=== PATIENT | male | born 1990 | race Caucasian/White ===

== ENCOUNTER → 2017-12-10 17:16 | Outpatient (CLI) | payer BC, SELFPAY ==
--- NOTE | 2017-12-10 17:22 | RAD_ITS ---
STUDY: X-RAY - THORACIC SPINE REASON FOR EXAM: Male, 27 years old. Pain TECHNIQUE: 3 view(s) of the thoracic spine were obtained. COMPARISON: None. FINDINGS: Normal kyphosis of the thoracic spine. There is no substantial scoliosis. Normal thoracic vertebrae and endplates. Normal disc space heights. The soft tissue structures are unremarkable. RAD/Thoracic Spine 3 Views IMPRESSION: Normal x-ray examination of the thoracic spine. Electronically Signed: Rich Shaikh MD at 4:27 EDT , Service support ,
== END ==
PROVIDERS: Family Provider Family Medicine; PCP Family Medicine; Referring Provider Family Medicine; Visit Provider Family Medicine
DX: S39.012D Strain of muscle, fascia and tendon of lower back, subsequent encounter (principal); X58.XXXD Exposure to other specified factors, subsequent encounter
CPT/HCPCS: 72072

== ENCOUNTER → 2020-05-17 16:18 | Outpatient (CLI) | payer BC, SELFPAY ==
--- NOTE | 2020-05-17 16:23 | RAD_ITS ---
STUDY: X-RAY - CERVICAL SPINE REASON FOR EXAM: Male, 30 years old. Back pain that goes up into sides of the neck TECHNIQUE: 6 view(s) of the cervical spine were obtained. COMPARISON: None FINDINGS: Normal anterior atlantoaxial articulation. Normal odontoid process. Normal cervical lordosis. Normal vertebral bodies and endplates. Normal disc space heights. Normal visualized intervertebral neuroforamina. The soft tissue structures are unremarkable. RAD/Cerv Spine 4 or 5 Views IMPRESSION: Normal x-ray examination of the visualized cervical spine. Electronically Signed: Eddy Duggan DO at 16:52 EST Tel [phone], Service support ,
--- NOTE | 2020-05-17 16:23 | RAD_ITS ---
STUDY: X-RAY - THORACIC SPINE REASON FOR EXAM: Male, 30 years old. Back pain that goes up into sides of the neck TECHNIQUE: 3 view(s) of the thoracic spine were obtained. COMPARISON: None. FINDINGS: Normal kyphosis of the thoracic spine. There is no substantial scoliosis. Normal thoracic vertebrae and endplates. Normal disc space heights. The soft tissue structures are unremarkable. RAD/Thoracic Spine 3 Views IMPRESSION: Normal x-ray examination of the thoracic spine. Electronically Signed: Eddy Duggan DO at 18:07 EST Tel [phone], Service support ,
== END ==
PROVIDERS: PCP Family Medicine; Referring Provider Family Medicine; Visit Provider Family Medicine
DX: S39.012D Strain of muscle, fascia and tendon of lower back, subsequent encounter (principal); X58.XXXD Exposure to other specified factors, subsequent encounter
CPT/HCPCS: 72050; 72072

== ENCOUNTER → 2020-05-29 06:30 | Outpatient (CLI) | payer BC, SELFPAY ==
--- NOTE | 2020-05-29 06:45 | MRI_ITS ---
STUDY: MRI LEFT UPPER EXTREMITY (SCAPULA) REASON FOR EXAM: Left scapular pain for over a year. TECHNIQUE: Standardized fat and water weighted pulse sequences were obtained in all 3 orthogonal planes. COMPARISON: None. FINDINGS: Normal scapula without demonstrated bone edema or destructive lesion. Normal periscapular musculature. Normal acromioclavicular joint. There is no demonstrated scapulothoracic bursitis. Normal visualized proximal humerus. MRI/Upper Ext/No Jt/ wo IMPRESSION: Normal MRI of the left scapula. Electronically Signed: Phillip Joe MD at 8:48 EDT Tel , Service support ,
--- NOTE | 2020-05-29 06:45 | MRI_ITS ---
STUDY: MRI THORACIC SPINE WITHOUT CONTRAST REASON FOR EXAM: Male, 30 years old. BACK STRAIN TECHNIQUE: Standardized fat and water weighted pulse sequences were obtained in the sagittal and axial planes. COMPARISON: X-ray 05/17/2020 FINDINGS: Normal kyphosis of the thoracic spine. There is no substantial scoliosis. T1-2, T2-3, T3-4, T4-5, T5-6, T6-7, T7-8, T8-9, T9-10, T10-11, T11-12: Normal endplates. Normal disc hydration, heights and morphology of the corresponding intervertebral discs. Normal central canal and intervertebral neural foramina at the corresponding levels. Normal visualized thoracic cord. Normal conus medullaris that terminates at the . The soft tissue structures are unremarkable. MRI/Spine Thoracic (Routine) IMPRESSION: Normal unenhanced MRI examination of the thoracic spine. Electronically Signed: Oleg Avina MD at 14:16 EDT Tel , Service support ,
== END ==
PROVIDERS: PCP Family Medicine; Referring Provider Family Medicine; Visit Provider Family Medicine
DX: S39.012D Strain of muscle, fascia and tendon of lower back, subsequent encounter (principal); X58.XXXD Exposure to other specified factors, subsequent encounter
CPT/HCPCS: 72146; 73218